=== PATIENT | female | born 1985 | race Caucasian/White ===

== ENCOUNTER → 2019-02-02 08:22 | Outpatient (CLI) | payer BC ==
[2015-04-19 05:55] VITALS: BMI 48.2
[~2019-02-02 08:22] MED LIST: BENADRYL25 MG PO; FLOVENT DI50 MCG/DIS INH; LO LOESTRIN FE PO
== END | disposition home or self-care (01) ==
LOC: D.MRI 08:22
PROVIDERS: ATTEND Orthopaedic Surgery
DX: S83.222A Peripheral tear of medial meniscus, current injury, left knee, initial encounter (principal)